=== PATIENT | male | born 1945 | race African-American/Black ===

== ENCOUNTER 2019-04-12 10:07 | Emergency (ER) | payer MEDICARE, SELFPAY ==
--- NOTE | ~2019-04-12 | CT_ITS ---
EXAMINATION: CT abdomen pelvis wo con DATE: 04/12/2019 10:52 INDICATION: Rectal pain. Dysuria. TECHNIQUE: Computed tomography (CT) of the abdomen and pelvis was performed without intravenous contr ast. Automated exposure control and iterative reconstruction technique were employed. The dose-length product was 1120.05 mGy-cm. COMPARISON: None. FINDINGS: The visualized portions of the lung bases demonstrate emphysema. No pleural effusion. The h eart size is normal. No pericardial effusion. There is a moderate-sized sliding hiatal hernia. The li marilyn and gallbladder are normal. Calcifications in the spleen are consistent with old granulomatous di sease. The pancreas and adrenal glands are normal. There are cysts in the kidneys measuring up to 6.8 cm on the right. There is a 3 mm stone in right kidney. There is a 2 mm stone in left kidney. The pr ostate is mildly enlarged and contains brachytherapy seeds. The rectum is distended by stool. There i s diverticulosis of the colon without evidence of diverticulitis. The appendix is normal. There is fa t stranding at the root of the small bowel mesentery. There are no pathologically enlarged lymph node s. There is an umbilical hernia containing a wall of nonobstructed small bowel. There is no free intr aperitoneal fluid. There is mild thoracolumbar spondylosis. IMPRESSION: 1. Distention of the rectum by stool. 2. Fat stranding at the root of the small bowel mesentery, which may be edema or inflammation (mesent cuate panniculitis). 3. Umbilical hernia containing a wall of nonobstructed small bowel. Reviewed, dictated and finalized at location A. ER CHAINSTITCH IMPRESSION: 1. Distention of the rectum by stool. 2. Fat stranding at the root of the small bowel mesentery, which may be edema o r inflammation (mesenteric panniculitis). 3. Umbilical hernia containing a wall of nonobstructed small bowel.
[2019-04-12 10:10] VITALS: BP 144/81; PULSE 75; RESP 20; TEMP 36.7; O2SAT 100
--- NOTE | 2019-04-12 10:26 | ED.ABDPAIN ---
HPI - Abdominal Pain General Chief Complaint: Abdominal Pain Stated Complaint: ABD PAIN/CONSTIPATION Time Seen by Provider: 04/12/19 10:13 Source: patient and RN notes reviewed Mode of arrival: ambulatory Limitations: no limitations History of Present Illness HPI narrative: Pt is a 74 y/o male presenting to the ED c/o rectal pain. Pt reports he has been experiencing rectal pain that worsened earlier today. Pt rates the pain as 15/10 on the pain scale and states nothing has alleviated the pain including Ibuprofen. Pt states the pain is worsened when attempting a BM and describes the pain as a pushing . Pt also reports constipation for 3 days, rectal bleeding, dysuria, difficulty urinating, and ABD pain, but denies N/V. Pt states he has a Hx of Prostate CA in which he is currently in remission for. Pt notes he saw the physician who performed the Cyber Knife treatment for his CA about his rectal pain and states he was prescribed Ciprofloxacin. Pt states he does not have a prescription of opioids at home. Pt states he has a Hx of hemorrhoids. Pertinent past history: other (Prostate Cancer) Onset (ago): unknown Associated symptoms: constipation, dysuria and other (Difficulty urinating; ABD pain) Related Data Home Medications Medication Instructions Recorded Confirmed metformin 500 mg tablet 500 mg PO BID 01/23/19 tiotropium bromide 2.5 1 puff INHALATION BID gm 01/23/19 mcg/actuation mist for inhalation famotidine 20 mg tablet 40 mg PO BID tablet 04/10/19 triamcinolone acetonide 0.1 % 1 applic TOPICAL DAILY gm 04/10/19 topical cream Allergies Allergy/AdvReac Type Severity Reaction Status Date / Time docosahexaenoic acid Allergy Severe Verified 03/25/19 16:30 erythromycin base Allergy Severe Verified 03/25/19 16:30 fish oil Allergy Severe Verified 03/25/19 16:30 EICOSAPENTAENOIC ACID Allergy Severe Uncoded 03/25/19 16:30 OMEGA-3 FATTY ACIDS Allergy Severe Uncoded 03/25/19 16:30 VITAMIN E Allergy Severe Uncoded 03/25/19 16:30 Review of Systems Review of Systems: Narrative: Gastrointestinal: Positive for rectal pain, abdominal pain, constipation, and rectal bleeding. Negative for nausea or vomiting. Genitourinary: Positive for dysuria and difficulty urinating. All systems reviewed & are unremarkable except as noted in HPI and below PMFSH Past Medical History Medical History Arthritis Diabetes Diverticulitis Essential (primary) hypertension Foot fracture, left GERD (gastroesophageal reflux disease) Hemorrhoid High cholesterol HLD (hyperlipidemia) Hypertension Pneumonia Pneumothorax x3 Prostate cancer Rectal polyp Sleep apnea Surgical History Surgical History H/O inguinal hernia repair History of laparoscopy 2015 History of Kunal fundoplication Family History Family History Sibling Family history of gastrointestinal disorder Family history of hepatitis Family history of primary malignant neoplasm of liver Mother Family history of primary malignant neoplasm of liver Patient's mother is Family history of congestive heart failure Sibling Cancer Crohn's colitis Other Diabetes mellitus Family history of allergic disorder Hypertension Social History Social History Smoking status: Former smoker Smoking end date: 02/20/94 Alcohol intake: never Exam Narrative: Exam Narrative: Constitutional: Appears well-developed. No distress. Nose: Nose normal. Eyes: Conjunctiva are normal. Neck: Normal range of motion. Neck supple. Cardiovascular: Normal rate and regular rhythm. Pulmonary/Chest: Effort normal and breath sounds normal. Abdominal: Soft. There is no tenderness. Rectal: No external hemorrhoids. No visible mass. Musculoskeletal: Normal range of motion. No edema. Neurological: Radha
[2019-04-12 10:42] LABS: Basophils Percent Auto 0.1 % (0.2-1.2); Eosinophils Percent Auto 0.3 % (0-4.4); Hematocrit 37.4 % (42.0-52.0); Hemoglobin 11.7 g/dL (14.0-18.0); Immature Granulocyte Absolute 0.04 K/mm3 (0.00-0.031); Immature Granulocyte Percent A 0.4 % (0-0.5); Lymphocytes Absolute Auto 0.55 K/mm3 (0.9-3.2); Lymphocytes Percent Auto 5.3 % (18.3-44.2); Mean Corpuscular HGB Conc 31.3 g/dl (32-36); Mean Corpuscular Hemoglobin 22.7 pg (26-34); Mean Corpuscular Volume 72.5 fl (80-100); Mean Platelet Volume 9.8 fl (7.4-10.4); Monocytes Absolute Auto 0.4 K/mm3 (0.1-0.6); Neutrophils Absolute Auto 9.4 K/mm3 (1.3-6.7); Neutrophils Percent Auto 89.9 % (45.5-73.1); Platelet Count Result 279 k/mm3 (150-375); Red Blood Count 5.16 M/mm3 (4.6-6.20); Red Cell Distribution Width 15.6 % (11.5-14.5); White Blood Count 10.5 K/mm3 (4.5-10.0)
[2019-04-12 10:55] LABS: Alanine Aminotransferase 27 U/L (4-50); Albumin Level 4.3 g/dL (3.5-5.1); Alkaline Phosphatase 108 U/L (38-126); Aspartate Amino Transferase 32 U/L (17-59); Bilirubin,Total 0.3 mg/dL (0.2-1.3); Blood Urea Nitrogen 20 mg/dL (9-20); Calcium 9.1 mg/dL (8.4-10.2); Carbon Dioxide 23 mmol/L (22-30); Chloride 103 mmol/L (98-107); Estimated CRCL calculation 45 ml/min; Estimated Glomerular Filt Rate 55; Glucose 106 mg/dL (75-110); Potassium 3.6 mmol/L (3.4-5.0); Sodium 139 mmol/L (137-145)
[2019-04-12 11:37] LABS: Add Urine Microscopic? YES; Appearance Urine Clear (Clear); Bilirubin Urine Negative (Negative); Blood Urine 1+ (Negative); Color Urine Yellow (Yellow); Glucose Urine UA Negative (Negative); Ketones Urine Negative (Negative); Leukocyte Esterase Ur Negative LEU/UL (Negative); Mucus Urine Rare /lpf; Nitrate Urine Negative (Negative); Protein Urine 1+ mg/dL (Negative); RBC Urine 0-2 /hpf (0-2); Specific Grav Ur 1.013 (1.001-1.035); Urobilinogen Urine Negative mg/dL (<2.0)
[2019-04-12 12:09] VITALS: BP 128/77; PULSE 79; RESP 17; O2SAT 99
[2019-04-12 14:13] VITALS: BP 133/79; PULSE 83; RESP 15; O2SAT 100
== END 2019-04-12 14:14 | disposition home or self-care (01) ==
PROVIDERS: Emergency Provider Emergency Medicine; PCP Internal Medicine
DX: K60.2 Anal fissure, unspecified (principal); K59.00 Constipation, unspecified; M19.90 Unspecified osteoarthritis, unspecified site; E11.9 Type 2 diabetes mellitus without complications; K21.9 Gastro-esophageal reflux disease without esophagitis; E78.5 Hyperlipidemia, unspecified; I10 Essential (primary) hypertension; G47.30 Sleep apnea, unspecified; Z85.46 Personal history of malignant neoplasm of prostate; Z87.19 Personal history of other diseases of the digestive system; Z79.84 Long term (current) use of oral hypoglycemic drugs
CPT/HCPCS: 36415; 74176; 80053; 81001; 85025; 99284

== ENCOUNTER 2020-01-17 07:59 | Outpatient (NON) | payer MEDICARE, SELFPAY ==
[2020-01-18 13:44] LABS: SARS-CoV-2 RNA PCR Positive
== END 2020-01-17 08:00 ==
PROVIDERS: PCP Internal Medicine; Visit Provider Nurse Practitioner
DX: U07.1 COVID-19 (principal)
CPT/HCPCS: 87635; C9803; U0003

== ENCOUNTER → 2020-03-06 10:50 | Outpatient (CLI) | payer MEDICARE, SELFPAY ==
--- NOTE | ~2020-03-06 | US_ITS ---
EXAMINATION: US renal BI DATE: 03/06/2020 11:44 INDICATION: Abnormal kidney function tests TECHNIQUE: Multiple grayscale and Doppler ultrasound images of the kidneys were obtained. COMPARISON: CT, 04/12/2019 FINDINGS: The right kidney measures 14.2 x 6.3 x 7.8 cm and contains multiple cysts, the largest of w hich measures up to 6.6 cm in the upper pole. The left kidney measures 10.1 x 4.8 x 5.1 cm. There are multiple cysts of the left kidney which measure up to 1.8 cm in the lower pole. A 1.7 x 1.7 cm hypoe choic lesion with posterior acoustic shadowing is present in the upper pole of the kidney. The kidney s demonstrate normal parenchymal echogenicity. There is no hydronephrosis. The bladder is normal. IMPRESSION: 1. Possible mass of the left kidney upper pole. Recommend further evaluation by CT or MRI without and with contrast. Reviewed, dictated and finalized at location A. E COORDINATOR
== END ==
PROVIDERS: PCP Internal Medicine; Visit Provider Internal Medicine Nephrology
DX: R94.4 Abnormal results of kidney function studies (principal)
CPT/HCPCS: 76775

== ENCOUNTER 2020-03-30 13:36 | Outpatient (CLI) | payer MEDICARE, SELFPAY ==
--- NOTE | ~2020-03-30 | CT_ITS ---
EXAMINATION: CT abdomen pelvis wo con DATE: 03/30/2020 13:58 INDICATION: Left kidney mass TECHNIQUE: Computed tomography (CT) of the abdomen and pelvis was performed without intravenous contr ast. The dose-length product (DLP) was 985.72 mGy-cm. Automated exposure control and iterative recons truction technique were employed. COMPARISON: 04/12/2019 FINDINGS: Emphysema is again noted in the visualized lung bases. The heart size is normal. There is a moderate-sized hiatal hernia. Punctate calcifications in an otherwise normal spleen likely represent healed granulomatous disease. The liver, pancreas, gallbladder, and adrenal glands are normal. Cysts of the kidneys measure up to 6.8 cm on the right. No definite new left kidney mass is identified alt zulay sensitivity is limited by the absence of intravenous contrast. There are nonobstructing stones in the kidneys which measure up to 3 mm on the left. No pathologically enlarged abdominal or pelvic l ymph nodes are identified. There is calcified atherosclerosis of the aorta and many of the other james kathi. There is no free intraperitoneal gas or evidence of bowel obstruction. 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 There is mild lumbar spondylosis. A fat-containing umbilical hernia is noted. Brachyt herapy seeds are noted in the prostate. IMPRESSION: 1. No suspicious kidney mass identified although sensitivity is limited by the absence of intravenous contrast. If there is a known suspicious kidney mass, further evaluation by CT or MRI without and wi th contrast would be recommended. Reviewed, dictated and finalized at location A. N CHAIN OPERATOR IMPRESSION: 1. No suspicious kidney mass identified although sensitivity is limited by the absence of intravenous contrast. If there is a known suspicious kidney mass, fu rther evaluation by CT or MRI without and with contrast would be recommended.
== END 2020-03-30 13:37 | disposition home or self-care (01) ==
PROVIDERS: PCP Internal Medicine; Visit Provider Internal Medicine Hematology & Oncology
DX: N28.89 Other specified disorders of kidney and ureter (principal)
CPT/HCPCS: 74176

== ENCOUNTER 2020-03-31 06:34 | Outpatient (CLI) | payer MEDICARE, SELFPAY ==
--- NOTE | ~2020-03-31 | MR_ITS ---
EXAMINATION: MR abdomen wo/w con DATE: 03/31/2020 08:16 INDICATION: Left kidney mass. TECHNIQUE: Magnetic resonance imaging (MRI) of the abdomen was performed without and with 18 mL Multi Godwin intravenous contrast. Sequences included coronal T2-weighted FS FSE, coronal and axial FIESTA F S, coronal LAVA-flex, axial LAVA, axial T2-weighted FSE, axial T1-weighted dual-echo FSPGR, axial STI R FSE, and axial DWI. Postcontrast sequences included coronal LAVA-flex and a time course of axial LA VA. COMPARISON: CT abdomen and pelvis 03/30/2020, ultrasound 03/06/2020 FINDINGS: The liver, gallbladder, spleen, pancreas, and kidneys are normal. There are simple cysts in the kidne ys measuring up to 6.3 cm on the right. There are hemorrhagic cysts in the kidneys measuring up to 1. 7 cm on the left. There are no dilated loops of bowel. There are no pathologically enlarged lymph nod es. There is no free intraperitoneal fluid. IMPRESSION: 1. Benign cysts in the kidneys. Reviewed, dictated and finalized at location A. ATOR CORE TESTER
[2020-03-31 07:34] LABS: Estimated Glomerular Filt Rate 42
== END 2020-03-31 06:35 | disposition home or self-care (01) ==
LOC: ANHIMG 06:36
PROVIDERS: PCP Internal Medicine; Visit Provider Urology
DX: N28.89 Other specified disorders of kidney and ureter (principal)
CPT/HCPCS: 74183; A9577

== ENCOUNTER 2021-04-30 09:55 | Outpatient (CLI) | payer MEDICARE, SELFPAY ==
--- NOTE | ~2021-04-30 | XR_ITS ---
EXAMINATION: XR bone survey comp/metastic DATE: 04/30/2021 10:42 INDICATION: Monoclonal gammopathy of uncertain significance. TECHNIQUE: 29 views of a skeletal survey were obtained. COMPARISON: CT abdomen and pelvis 03/30/2020 FINDINGS: There is chronic peripheral scarring in the upper lobes of the lungs. There is severe cervi tania spondylosis. There is mild thoracolumbar spondylosis. There are no lytic lesions of bone to sugge st multiple myeloma. There are brachytherapy seeds in the prostate. IMPRESSION: 1. No evidence of multiple myeloma. Reviewed, dictated and finalized at location A. IONIZER
== END 2021-04-30 09:56 | disposition home or self-care (01) ==
LOC: ANHIMG 10:01
PROVIDERS: PCP Internal Medicine; Visit Provider Internal Medicine Hematology & Oncology
DX: D47.2 Monoclonal gammopathy (principal); M47.812 Spondylosis without myelopathy or radiculopathy, cervical region; M47.815 Spondylosis without myelopathy or radiculopathy, thoracolumbar region
CPT/HCPCS: 77075

== ENCOUNTER → 2021-05-11 08:20 | Outpatient (CLI) | payer MEDICARE, SELFPAY ==
--- NOTE | ~2021-05-11 | XR_ITS ---
EXAMINATION: XR hip RT min 2V EXAM DATE: 05/11/2021 09:08 INDICATION: M25.551 - Pain in right hip. TECHNIQUE: Right hip frontal, crosstable lateral projections for interpretation. There is no prior study for comparison. FINDINGS: Smooth right hip femoral head contour, no radiographic evidence of avascular necrosis. The re is mild to moderate primary osteoarthritis. There are no acute fractures or dislocations identifie d. There is no subcutaneous gas. The soft tissue is unremarkable. There are no radiopaque foreign bodies. IMPRESSION: Mild to moderate right hip osteoarthritis. Reviewed, dictated and finalized at location G.
--- NOTE | ~2021-05-11 | XR_ITS ---
EXAMINATION: XR shoulder LT min 2V EXAM DATE: 05/11/2021 09:08 INDICATION: M25.512 - Pain in left shoulder. TECHNIQUE: The following left shoulder projections obtained: frontal projection with internal rotatio n, frontal projection with external rotation, Grashey, and axillary (4+ views). There is no prior st udy for comparison. FINDINGS: No evidence of left shoulder rotator cuff calcific tendinosis. There is mild glenohumera l joint, moderate acromioclavicular joint primary osteoarthritis. There are no acute fractures or dis locations identified. There is no subcutaneous gas. The soft tissue is unremarkable. There are no radiopaque foreign bodies. IMPRESSION: Moderate left acromioclavicular, mild glenohumeral osteoarthritis. Reviewed, dictated and finalized at location G.
== END ==
PROVIDERS: PCP Internal Medicine; Visit Provider Nurse Practitioner
DX: M16.11 Unilateral primary osteoarthritis, right hip (principal); M19.012 Primary osteoarthritis, left shoulder
CPT/HCPCS: 73030; 73502

== ENCOUNTER 2021-08-26 09:15 | Outpatient (CLI) | payer MEDICARE, SELFPAY ==
--- NOTE | ~2021-08-26 | XR_ITS ---
EXAMINATION: XR lg joint inject/asp w image DATE: 08/26/2021 11:08 INDICATION: Right hip osteoarthritis presenting with pain TECHNIQUE: A time-out was performed to verify the patient's name, date of , and procedure to b e performed. The procedure including the risks, benefits, and alternatives was discussed with the pat ient. Risks discussed included bleeding and infection. The patient understood the risks and agreed to proceed. The skin overlying the right hip joint was prepped and draped in usual sterile fashion. A nesthetic was administered with 1% lidocaine subcutaneously. A 22 G needle was advanced under fluoro scopic guidance into the joint. Injection of a small amount of gas confirmed intra-articular positio n of the needle. Subsequently, injectate consisting of 3 mL of a 2:1 mixture of 0.5% bupivacaine: 80 mg/mL Depo-Medrol for a total dosage of 80 mg Depo-Medrol was instilled. Washout of contrast was see n confirming intra-articular administration. The needle was removed and the entry site was cleaned an d dressed. There were no immediate complications. Fluoroscopy exposure time was 0.1 minutes. The tot al number of images was 2. FINDINGS: Real-time fluoroscopy demonstrates the needle in the right hip joint. Patient's pain prior to procedure:8/10. Patient's pain following the procedure: 0/10. IMPRESSION: 1. Successful right hip joint injection of local anesthetic and steroid with decrease in the patient' s presenting pain. Reviewed, dictated and finalized at location A. IMPRESSION: 1. Successful right hip joint injection of local anesthetic and steroid with de crease in the patient's presenting pain.
--- NOTE | ~2021-08-26 | MR_ITS ---
EXAMINATION: MR shoulder LT wo con DATE: 08/26/2021 10:34 INDICATION: Left shoulder pain TECHNIQUE: Magnetic resonance imaging (MRI) of the left shoulder was performed without intravenous co ntrast. Sequences included axial PD-weighted FS FSE, coronal oblique PD-weighted FS FSE, coronal obli que T2-weighted FS FSE, sagittal PD-weighted FS FSE, and sagittal T1-weighted SE. COMPARISON: Left shoulder radiographs dated 05/11/2021 FINDINGS: Coracoacromial arch: The acromion undersurface is curved in morphology (type II). The coracoacromial ligament is normal. M oderate acromioclavicular osteoarthritis with moderate-sized inferiorly directed osteophytes which co ntact the cephalad margin of the subscapularis myotendinous junction with effacement of the interveni ng fat plane. Rotator cuff: Mild supraspinatus and infraspinatus tendinopathy. There is a very small fluid signal intensity parti al-thickness intrasubstance tear extending 3-4 mm AP along the middle facet footplate of the conjoine d portion of the supraspinatus and infraspinatus tendons and involving approximately one third of the tendon thickness. The teres minor tendon is normal. The subscapularis tendon is normal. Normal rotat or cuff muscle bulk and signal. Biceps tendon, glenoid labrum and glenohumeral cartilage: Long head of the biceps tendon is normal. There is a superior, anterior to posterior tear of the alf oid labrum (SLAP tear) which extends from the 1:00 position anteriorly to the 10:00 position posterio rly. Glenohumeral cartilage is normal. Fluid: Physiologic amount of fluid in the glenohumeral joint and biceps tendon sheath. No loose osteochondr al bodies. No abnormal increased fluid signal in the subacromial/subdeltoid bursa to suggest bursitis . Bones: Bone alignment is normal. No fracture. 2.0 x 1.3 x 1.5 cm lesion at the anterior proximal metaphysis of the left humerus underlying the inferior aspect of the lesser tuberosity. The lesion demonstrates heterogeneous pattern small globular T1 and T2 hyperintense regions and small globular and curvilinea r T2 hyperintensity. Corresponding ring and arc-like pattern of sclerosis on the plain radiographs. L ocation appearance would be classic for an enchondroma. No other suspicious bone lesions or other pat hologic marrow replacing process. IMPRESSION: 1. Mild supraspinatus and infraspinatus tendinopathy with very small, mild partial-thickness intrasub stance tear along the middle facet footplate of the conjoined portion of the tendon. 2. SLAP tear of the superior to posterosuperior glenoid labrum. 3. Moderate acromioclavicular osteoarthritis. 4. 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 Reviewed, dictated and finalized at location A. IMPRESSION: 1. Mild supraspinatus and infraspinatus tendinopathy with very small, mild part ial-thickness intrasubstance tear along the middle facet footplate of the conjo ined portion of the tendon. 2. SLAP tear of the superior to posterosuperior glenoid labrum. 3. Moderate acromioclavicular osteoarthritis. 4. 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
== END 2021-08-26 09:16 | disposition home or self-care (01) ==
PROVIDERS: PCP Internal Medicine; Visit Provider Orthopaedic Surgery
DX: S43.432D Superior glenoid labrum lesion of left shoulder, subsequent encounter (principal); X58.XXXD Exposure to other specified factors, subsequent encounter; M19.012 Primary osteoarthritis, left shoulder
CPT/HCPCS: 20610; 73221; 77002

== ENCOUNTER → 2022-12-29 10:51 | Outpatient (CLI) | payer MEDICARE, SELFPAY ==
--- NOTE | ~2022-12-29 | CT_ITS ---
EXAMINATION: CT chest abdomen pelvis wo con DATE: 12/29/2022 11:27 INDICATION: Weight loss, history of prostate cancer TECHNIQUE: Transaxial computed tomographic images of the chest, abdomen, and pelvis were obtained wit hout intravenous contrast. The dose-length product (DLP) was 691.27 mGy-cm. Automated exposure contro l and iterative reconstruction technique were employed. COMPARISON: 03/30/2020 FINDINGS: CHEST CT: There is severe emphysema. Subpleural opacities of the lungs likely reflect atelectasis and scarring. No pleural effusion or pneumothorax. There is a moderate-sized sliding hiatal hernia. No pathologica lly enlarged thoracic lymph nodes are identified. The heart size is normal. There is mild bilateral g ynecomastia. Calcified coronary artery atherosclerosis is noted. There is mild thoracic spondylosis. ABDOMEN/PELVIS CT: Punctate calcifications in an otherwise normal spleen likely represent healed granulomatous disease. The liver, gallbladder, and pancreas are normal. There is chronic bilateral thickening of the adrenal glands. Cysts of the kidneys measure up to 6.7 cm on the right. No pathologically enlarged abdominal or pelvic lymph nodes are identified. There is no free intraperitoneal gas. There is mild distention of the distal duodenum and proximal jejunum. A large volume of colonic stool is present. There is fo rmed stool in the nondistended terminal ileum, consistent with slow transit. IMPRESSION: 1. Severe emphysema with areas of probable subpleural atelectasis and scarring of the lungs. 2. Mildly dilated proximal small bowel of unclear etiology, possible ileus. Reviewed, dictated and finalized at location L. OMIC PATHOLOGY MANAGER
--- NOTE | ~2022-12-29 | CT_ITS ---
EXAMINATION: CT brain wo con INDICATION: Malignant neoplasm of the prostate COMPARISON: 04/30/2021 TECHNIQUE: Standard unenhanced head CT. The dose-length product (DLP) was 599.57 mGy-cm. The mA was a djusted according to patient size. Iterative reconstruction technique was employed. FINDINGS: No acute intraparenchymal hemorrhage. No evidence of mass lesion. No evidence of acute infa rction. There is mild periventricular and subcortical hypodensity probably related to small vessel is chemic disease. There is mild prominence of the sulci and ventricles related to cerebral atrophy. Int racranial calcified cerebral atherosclerosis is noted. No extra-axial collections. No mass effect or midline shift. The orbits and soft tissues are unremarkable. There is a chronic sclerotic focus in th e right frontal skull. The visualized sinuses and mastoid air cells are well aerated. IMPRESSION: 1. No acute intracranial abnormality. 2. Age related findings. Reviewed, dictated and finalized at location L. TO CHIP PROCESSING SUPERVISOR
== END ==
PROVIDERS: PCP Nurse Practitioner Family; Visit Provider Nurse Practitioner Family
DX: C61 Malignant neoplasm of prostate (principal); Z85.46 Personal history of malignant neoplasm of prostate; R63.4 Abnormal weight loss; R10.9 Unspecified abdominal pain; J43.9 Emphysema, unspecified; R91.8 Other nonspecific abnormal finding of lung field
CPT/HCPCS: 70450; 71250; 74176

== ENCOUNTER 2023-02-23 13:28 | Outpatient (CLI) | payer MEDICARE, SELFPAY ==
[2023-02-23 13:55] LABS: Basophils Percent Auto 0.4 % (0.2-1.2); Eosinophils Absolute Auto 0.1 K/mm3 (0-0.3); Eosinophils Percent Auto 1.5 % (0-4.4); Hematocrit 29.5 % (42.0-52.0); Hemoglobin 9.6 g/dL (14.0-18.0); Immature Granulocyte Absolute 0.02 K/mm3 (0.00-0.031); Immature Granulocyte Percent A 0.4 % (0-0.5); Lymphocytes Absolute Auto 1.27 K/mm3 (0.9-3.2); Lymphocytes Percent Auto 23.7 % (18.3-44.2); Mean Corpuscular HGB Conc 32.5 g/dl (32-36); Mean Corpuscular Hemoglobin 23.4 pg (26-34); Mean Platelet Volume 9.8 fl (7.4-10.4); Monocytes Absolute Auto 0.5 K/mm3 (0.1-0.6); Monocytes Percent Auto 8.6 % (2.6-8.5); Neutrophils Absolute Auto 3.5 K/mm3 (1.3-6.7); Neutrophils Percent Auto 65.4 % (45.5-73.1); Platelet Count Result 333 k/mm3 (150-375); Red Cell Distribution Width 18.3 % (11.5-14.5); White Blood Count 5.4 K/mm3 (4.5-10.0)
[2023-02-23 14:07] LABS: Anisocytosis 1+ (NORMAL); Platelet Estimate Adequate (Adequate); Poikilocytosis 1+ (NORMAL); Schistocytes None Seen (NORMAL); Target Cells 1+ (NORMAL)
[2023-02-23 19:08] LABS: Alanine Aminotransferase 26 U/L (6-50); Alkaline Phosphatase 104 U/L (38-126); Anion Gap 8 mmol/L (8-16); Aspartate Amino Transferase 40 U/L (17-59); Bilirubin,Total 0.4 mg/dL (0.2-1.3); Blood Urea Nitrogen 18 mg/dL (9-20); Carbon Dioxide 28 mmol/L (22-30); Chloride 105 mmol/L (98-107); Estimated Glomerular Filt Rate 44; Glucose 109 mg/dL (65-110); Potassium 3.6 mmol/L (3.4-5.0); Sodium 141 mmol/L (137-145)
[2023-02-23 20:54] LABS: Immunoglobulin A 458 mg/dL (70-400); Immunoglobulin G 1107 mg/dL (700-1600)
[2023-02-23 22:12] LABS: Immunoglobulin M < 25 mg/dL (40-230)
[2023-02-26 15:02] LABS: Kappa\\Lambda Light Chains 3.39 (0.26-1.65); Lambda Light Chain 61.3 mg/L (5.7-26.3)
[2023-02-27 14:48] LABS: Albumin 3.6 g/dL (3.8-4.8); Alpha 1 Globulin 0.3 g/dL (0.2-0.3); Alpha 2 Globulin 0.6 g/dL (0.5-0.9); Beta 1 Globulin 0.4 g/dL (0.4-0.6); Gamma Globulin 0.9 g/dL (0.8-1.7); Protein, Total 6.3 g/dL (6.1-8.1)
== END 2023-02-23 13:29 | disposition home or self-care (01) ==
LOC: ANHLAB 13:29
PROVIDERS: PCP Nurse Practitioner Family; Visit Provider Internal Medicine Hematology & Oncology
DX: D47.2 Monoclonal gammopathy (principal)
CPT/HCPCS: 36415; 80053; 82784; 83883; 84155; 84165; 85025

== ENCOUNTER 2023-04-24 07:20 | Outpatient (CLI) | payer MEDICARE, SELFPAY ==
--- NOTE | ~2023-04-24 | MR_ITS ---
EXAMINATION: MR shoulder LT wo con DATE: 04/24/2023 08:20 INDICATION: Left shoulder pain. TECHNIQUE: Magnetic resonance imaging (MRI) of the left shoulder was performed without intravenous co ntrast. Sequences included axial PD-weighted FS FSE, coronal oblique PD-weighted FS FSE and T2-weight ed FS FSE, and sagittal oblique T2-weighted FS FSE and T1-weighted FSE. COMPARISON: Left shoulder MRI 08/26/2021, radiographs 06/24/2022 FINDINGS: Coracoacromial arch: The acromion undersurface is curved in morphology (type II). There is severe acromioclavicular joint osteoarthritis including inferiorly directed osteophytes. There is moderate subacromial/subdeltoid bu rsitis. Rotator cuff: There is moderate supraspinatus and infraspinatus tendinopathy. Teres minor tendon is normal. Subscap ularis tendon is normal. There is no asymmetric fatty atrophy of the rotator cuff muscle bellies. Biceps tendon and glenoid labrum: Biceps tendon is in bicipital groove. There is mild intra-articular biceps tendinopathy. There is a t ear of the glenoid labrum from 10:00 to 2:00 (SLAP tear). Fluid: There is no glenohumeral joint effusion. Bones/cartilage: Humeral head cartilage is normal. Glenoid cartilage is normal. There is a chronic lesion in humeral h ead measuring 17 mm in a pattern of chondroid matrix, likely an enchondroma. IMPRESSION: 1. Moderate rotator cuff tendinopathy. No tear. 2. SLAP tear. 3. Severe acromioclavicular joint osteoarthritis. 4. Moderate subacromial/subdeltoid bursitis. Reviewed, dictated and finalized at location E. ND SUPPORT EQUIPMENT FITTER
== END 2023-04-24 07:21 ==
LOC: MICIMG 07:22
PROVIDERS: PCP Nurse Practitioner Family; Visit Provider Nurse Practitioner Family
DX: S43.432D Superior glenoid labrum lesion of left shoulder, subsequent encounter (principal); X58.XXXD Exposure to other specified factors, subsequent encounter; M19.012 Primary osteoarthritis, left shoulder; M75.52 Bursitis of left shoulder
CPT/HCPCS: 73221